=== PATIENT | female | born 1990 | race Caucasian/White ===

== ENCOUNTER 2018-06-27 22:21 | Inpatient (IN) | payer OTHER ==
[2018-06-27] MEDS ORDERED: LIDOCAINE 1% (MPF) 30 ML INJ INJ (23:00)
[2018-06-27] MEDS ORDERED: OXYTOCIN 30 UNITS/LR 500 ML IV ×2 (23:00)
[2018-06-27] MEDS ORDERED: IBUPROFEN 600 MG TAB PO (23:00)
[2018-06-27] MEDS ORDERED: MISOPROSTOL 200 MCG TAB PR (23:00)
[2018-06-28] MEDS: LACTATED RINGER'S 1,000 ML IV ×4 (00:51→23:44)
[2018-06-28] MEDS: MISOPROSTOL 50 MCG CAPSULE PO ×4 (00:52→13:28)
[2018-06-28 00:58] LABS: ADD MAN DIFF? NO
[2018-06-28 01:04] LABS: BASOPHILS % 0.2 % (0.0-2.0); EOSINOPHILS # 0.1 10^3/ul (0.0-0.5); EOSINOPHILS % 1.2 % (0.0-7.0); HEMATOCRIT 33.3 % (37.0-47.0); HEMOGLOBIN 11.6 g/dl (12.0-16.0); LYMPHOCYTES % 21.5 % (15.0-51.0); MEAN CORPUSCULAR HEMOGLOBIN 31.6 pg (29.0-33.0); MEAN CORPUSCULAR HGB CONC 34.8 g/dl (32.0-37.0); MEAN CORPUSCULAR VOLUME 90.7 fl (82.0-101.0); MEAN PLATELET VOLUME 10.4 fl (7.4-10.4); MONOCYTE # 0.5 10^3/ul (0.3-0.9); MONOCYTES % 5.4 % (0.0-11.0); NEUTROPHIL # 6.7 10^3/ul (1.6-7.5); NEUTROPHILS % 71.3 % (39.0-77.0); PLATELET COUNT 268 10^3/UL (140-415); RED BLOOD COUNT 3.67 10^6/ul (4.20-5.40); RED CELL DISTRIBUTION WIDTH 12.4 % (11.5-14.5)
[2018-06-28 01:04] LABS: WHITE BLOOD COUNT 9.3 10^3/ul (4.8-10.8)
[2018-06-28 01:38] LABS: INR 0.89; PROTIME 12.1 Sec (11.9-14.9); PT RATIO 0.9
[2018-06-28 01:39] LABS: PARTIAL THROMBOPLASTIN TIME 25.8 Sec (23.0-35.0)
[2018-06-28 15:01] LABS: RAPID PLASMA REAGIN NONREACTIVE (NR)
[2018-06-28] MEDS: MISOPROSTOL 200 MCG TAB VAG (18:06)
[2018-06-28] MEDS ORDERED: MISOPROSTOL 50 MCG CAPSULE VAG (21:00)
[2018-06-28] MEDS: MISOPROSTOL 100 MCG TAB VAG (21:14)
[2018-06-29] MEDS: BUTORPHANOL 2 MG INJ IV (00:34)
[2018-06-29] MEDS: MISOPROSTOL 100 MCG TAB VAG ×2 (01:29→05:33)
[2018-06-29] MEDS: LACTATED RINGER'S 1,000 ML IV ×3 (07:44→22:42)
[2018-06-29] MEDS: MISOPROSTOL 100 MCG TAB PO ×2 (12:58→21:00)
[2018-06-29] MEDS ORDERED: NALOXONE (0.4 MG/ML) INJ IV (15:30)
[2018-06-29] MEDS ORDERED: ONDANSETRON 4 MG INJ IV (15:30)
[2018-06-29] MEDS ORDERED: DIPHENHYDRAMINE 50 MG INJ IV (15:30)
[2018-06-29] MEDS ORDERED: ZOLPIDEM 5 MG TAB PO (15:30)
[2018-06-29] MEDS ORDERED: KETOROLAC 30 MG INJ IV (15:30)
[2018-06-29] MEDS ORDERED: HYDROmorphONE 0.5 MG/0.5 ML SYG IV ×2 (15:30)
[2018-06-29] MEDS ORDERED: DINOPROSTONE 20 MG VAG SUPP VAG (20:00)
[2018-06-29] MEDS: DINOPROSTONE 10 MG VAG SUPP VAG (21:19)
[2018-06-30] MEDS: FENTAnyl 2MCG/ML-ROPIV 0.2% 100 ML BAG EPI ×3 (00:32→21:47)
[2018-06-30] MEDS: ONDANSETRON 4 MG INJ IV (00:54)
[2018-06-30] MEDS: DINOPROSTONE 10 MG VAG SUPP VAG (03:10)
[2018-06-30] MEDS: LACTATED RINGER'S 1,000 ML IV ×2 (05:20→22:01)
[2018-06-30] MEDS: DINOPROSTONE 20 MG VAG SUPP VAG ×3 (08:36→17:43)
[2018-06-30] MEDS ORDERED: FENTAnyl 2MCG/ML-ROPIV 0.2% 100 ML (21:39)
[2018-06-30] MEDS: OXYTOCIN 30 UNITS/LR 500 ML IV (22:30)
[2018-06-30] MEDS: METHYLERGONOVINE 0.2 MG INJ IM ×2 (22:53→23:54)
[2018-06-30] MEDS: CARBOPROST 250 MCG INJ IM (23:12)
[2018-07-01] MEDS ORDERED: LIDOCAINE 1.5%/EPI MPF (SDV) 30 ML VIAL
[2018-07-01] MEDS ORDERED: ONDANSETRON 4 MG INJ
[2018-07-01] MEDS ORDERED: LANOLIN HPA 1 PKT TOP (00:30)
[2018-07-01] MEDS ORDERED: DIPHENHYDRAMINE 50 MG INJ IV (00:30)
[2018-07-01] MEDS ORDERED: DIPHENHYDRAMINE 25 MG CAP PO (00:30)
[2018-07-01] MEDS ORDERED: ONDANSETRON 4 MG TAB PO (00:30)
[2018-07-01] MEDS ORDERED: CARBOPROST 250 MCG INJ IM (00:30)
[2018-07-01] MEDS ORDERED: ACETAMINOPHEN 325 MG TAB PO ×2 (00:30)
[2018-07-01] MEDS ORDERED: HYDROCODONE/APAP (5/325) TAB PO (00:30)
[2018-07-01] MEDS ORDERED: METHYLERGONOVINE 0.2 MG INJ IM (00:30)
[2018-07-01] MEDS ORDERED: ONDANSETRON 4 MG INJ IV (00:30)
[2018-07-01] MEDS ORDERED: BUTORPHANOL 2 MG INJ IV (01:30)
[2018-07-01] MEDS: OXYTOCIN 30 UNITS/LR 500 ML IV (01:39)
[2018-07-01] MEDS: HYDROCODONE/APAP (5/325) TAB PO (01:50)
[2018-07-01] MEDS: DIPHENOXYLATE/ATROPINE TAB PO (01:52)
[2018-07-01] MEDS: LACTATED RINGER'S 1,000 ML IV* ×2 (01:55→13:56)
[2018-07-01] MEDS: MISOPROSTOL 200 MCG TAB PR (02:14)
[2018-07-01] MEDS: IBUPROFEN 800 MG TAB PO ×3 (06:21→17:46)
[2018-07-01] MEDS: CEFAZOLIN 2 GM/50 ML (PMX) 50 ML IVPB ×3 (06:22→21:43)
[2018-07-01] MEDS ORDERED: ROPIVACAINE 0.2% 20 ML VIAL (07:00)
[2018-07-01] MEDS ORDERED: CARBOPROST 250 MCG INJ (07:00)
[2018-07-01] MEDS ORDERED: METHYLERGONOVINE 0.2 MG INJ (07:00)
[2018-07-01 08:33] LABS: ADD MAN DIFF? NO
[2018-07-01 08:34] LABS: BASOPHILS % 0.2 % (0.0-2.0); EOSINOPHILS % 0.1 % (0.0-7.0); HEMOGLOBIN 10.4 g/dl (12.0-16.0); LYMPHOCYTES # 1.5 10^3/ul (0.8-2.9); LYMPHOCYTES % 9.6 % (15.0-51.0); MEAN CORPUSCULAR HEMOGLOBIN 31.4 pg (29.0-33.0); MEAN CORPUSCULAR HGB CONC 34.7 g/dl (32.0-37.0); MEAN CORPUSCULAR VOLUME 90.6 fl (82.0-101.0); MEAN PLATELET VOLUME 10.9 fl (7.4-10.4); MONOCYTE # 0.6 10^3/ul (0.3-0.9); MONOCYTES % 3.6 % (0.0-11.0); NEUTROPHIL # 13.9 10^3/ul (1.6-7.5); PLATELET COUNT 220 10^3/UL (140-415); RED BLOOD COUNT 3.31 10^6/ul (4.20-5.40); RED CELL DISTRIBUTION WIDTH 12.3 % (11.5-14.5)
[2018-07-01 08:34] LABS: WHITE BLOOD COUNT 16.1 10^3/ul (4.8-10.8)
[2018-07-01 08:56] LABS: INR 0.92; PROTIME 12.5 Sec (11.9-14.9)
[2018-07-01 08:57] LABS: PARTIAL THROMBOPLASTIN TIME 28.6 Sec (23.0-35.0)
[2018-07-01] MEDS: SENNA/DOCUSATE NA (8.6MG/50MG) TAB PO (13:06)
[2018-07-01 13:58] LABS: ADD MAN DIFF? NO
[2018-07-01 14:02] LABS: WHITE BLOOD COUNT 10.9 10^3/ul (4.8-10.8)
[2018-07-01 14:02] LABS: BASOPHILS % 0.2 % (0.0-2.0); EOSINOPHILS # 0.1 10^3/ul (0.0-0.5); EOSINOPHILS % 0.8 % (0.0-7.0); HEMATOCRIT 28.4 % (37.0-47.0); HEMOGLOBIN 9.5 g/dl (12.0-16.0); LYMPHOCYTES # 1.9 10^3/ul (0.8-2.9); LYMPHOCYTES % 17.6 % (15.0-51.0); MEAN CORPUSCULAR HGB CONC 33.5 g/dl (32.0-37.0); MEAN CORPUSCULAR VOLUME 92.8 fl (82.0-101.0); MEAN PLATELET VOLUME 10.2 fl (7.4-10.4); MONOCYTE # 0.6 10^3/ul (0.3-0.9); MONOCYTES % 5.7 % (0.0-11.0); NEUTROPHIL # 8.2 10^3/ul (1.6-7.5); NEUTROPHILS % 75.2 % (39.0-77.0); PLATELET COUNT 193 10^3/UL (140-415); RED BLOOD COUNT 3.06 10^6/ul (4.20-5.40); RED CELL DISTRIBUTION WIDTH 12.3 % (11.5-14.5)
[2018-07-01] MEDS: MAGNESIUM HYDROXIDE 30ML CUP PO (22:01)
[2018-07-01] MEDS: MEASLES,MUMPS,RUBELLA VACCINE INJ SC* (22:18)
[2018-07-01] MEDS: VARICELLA VACCINE LIVE/PF 1,350 UNIT/0.5 ML ML SC* (22:18)
[2018-07-01] MEDS: DIPHTH/TET/ACEL PERTUSS (ADULT) 0.5 ML VIAL IM* (22:24)
[2018-07-03] MEDS ORDERED: MEASLES,MUMPS,RUBELLA VACCINE INJ SC* (09:00)
[2018-07-03] MEDS ORDERED: DIPHTH/TET/ACEL PERTUSS (ADULT) 0.5 ML VIAL IM* (09:00)
[2018-07-03] MEDS ORDERED: VARICELLA VACCINE LIVE/PF 1,350 UNIT/0.5 ML ML SC* (09:00)
== END 2018-07-01 23:10 | disposition home or self-care (01) | DRG 768 ==
LOC: L-D 22:21
PROVIDERS: Obstetrics & Gynecology
PROC: 10A07ZX Abortion of Products of Conception, Abortifacient, Via Natural or Artificial Opening (ICD-10-PCS; principal; 2018-06-30)
PROC: 10D17Z9 Manual Extraction of Products of Conception, Retained, Via Natural or Artificial Opening (ICD-10-PCS; 2018-07-01)
PROC: 0W3R7ZZ Control Bleeding in Genitourinary Tract, Via Natural or Artificial Opening (ICD-10-PCS; 2018-07-01)
DX: Z33.2 Encounter for elective termination of pregnancy (principal); Z37.0 Single live birth; O72.1 Other immediate postpartum hemorrhage; O35.8XX0 Maternal care for other (suspected) fetal abnormality and damage, not applicable or unspecified; Z3A.24 24 weeks gestation of pregnancy; Z23 Encounter for immunization
CPT/HCPCS: 62319; 85025; 85384; 85610; 85730; 86592; 86850; 86900; 86901; 88307; 90715